=== PATIENT | male | born 1955 | race African-American/Black ===

== ENCOUNTER 2017-04-24 18:22 | Emergency (ER) | payer OTHER ==
[~2017-04-24] VITALS: Ht 185.4 cm; Wt 125.0 kg
[~2017-04-24 18:22] MED LIST: DULA0.5I; HYDR-2768 PO; HYDR10SO PO; KETO60IN6 IJ; LISI-363 PO
[2017-04-24 18:26] VITALS: BP 176/97; PULSE 91; RESP 20; TEMP 99.3; O2SAT 98
[2017-04-24] MEDS ORDERED: LISI-515 PO (19:58)
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
== END 2017-04-24 21:26 | disposition home or self-care (01) ==
LOC: NEPD 18:22
DX: M54.5 Low back pain (principal); G89.29 Other chronic pain; I10 Essential (primary) hypertension; E11.9 Type 2 diabetes mellitus without complications; V49.49XA Driver injured in collision with other motor vehicles in traffic accident, initial encounter
CPT/HCPCS: 99282